=== PATIENT | female | born 1990 ===

== ENCOUNTER 2021-04-12 12:29 | Emergency (ER) | payer MEDICAID, OTHER ==
[~2021-04-12] VITALS: Ht 162.6 cm; Wt 127.0 kg
[2021-04-12 13:12] VITALS: BP 149/104
[2021-04-12] MEDS ORDERED: IBUP800T27 PO (14:14)
== END 2021-04-12 14:26 | disposition home or self-care (01) ==
LOC: ER 12:29
DX: S10.93XA Contusion of unspecified part of neck, initial encounter (principal); F17.210 Nicotine dependence, cigarettes, uncomplicated; F12.10 Cannabis abuse, uncomplicated; Y08.89XA Assault by other specified means, initial encounter; Y93.89 Activity, other specified; Y92.89 Other specified places as the place of occurrence of the external cause; Y99.8 Other external cause status